=== PATIENT | male | born 1990 | race Two or more races ===

== ENCOUNTER 2024-08-18 16:03 | Inpatient (IN) | payer OTHER ==
[~2024-08-18] VITALS: Ht 175.3 cm; Wt 77.3 kg
[2024-08-18 18:11] LABS: BASOPHILS % (AUTO) 0.3 % (0.0-2.0); EOSINOPHILS % (AUTO) 1.6 % (1.0-6.0); HEMATOCRIT 45.5 % (41-53); HEMOGLOBIN 15.3 g/dL (13.5-17.5); LYMPHOCYTES # (AUTO) 1.7 K/uL (1.0-4.8); LYMPHOCYTES % (AUTO) 17.8 % (22.0-44.0); MEAN CORPUSCULAR HEMOGLOBIN 29.9 pg (26.0-34.0); MEAN CORPUSCULAR HGB CONC 33.5 G/dL (31.0-37.0); MEAN CORPUSCULAR VOLUME 89 fL (80-100); MONOCYTES # (AUTO) 1.3 K/uL (0.1-1.0); MONOCYTES % (AUTO) 13.6 % (2.0-9.0); NEUTROPHILS # (AUTO) 6.4 K/uL (1.8-7.7); NEUTROPHILS % (AUTO) 66.7 % (40.0-70.0); PLATELET COUNT (AUTO) 228 K/uL (150-450); RED CELL DISTRIBUTION WIDTH 12.9 % (11.5-14.5); WHITE BLOOD COUNT (AUTO) 9.6 K/uL (4.5-11.0)
[2024-08-18 18:21] LABS: ANION GAP 4 mmol/L (8-16); CARBON DIOXIDE 31 mmol/L (22-29); CHLORIDE 100 mmol/L (98-107); CREATININE 1.11 mg/dL (0.60-1.30); GLOMERULAR FILTR. RATE CALC > 60 mL/min (>60); GLUCOSE,RANDOM 103 mg/dL (70-110); POTASSIUM 4.4 mmol/L (3.5-5.1); SODIUM SERUM 135 mmol/L (136-145); UREA NITROGEN, BLOOD 13 mg/dL (7-18)
[2024-08-18 18:31] LABS: TROPONIN I-HIGH SENSITIVITY 5 ng/L (<76)
[2024-08-18 19:26] LABS: COVID AG,FIA SOURCE NASAL SWAB
[2024-08-18 19:46] LABS: INFLUENZA TYPE A NEGATIVE FOR TYPE A (NEGATIVE); INFLUENZA TYPE B NEGATIVE FOR TYPE B (NEGATIVE); SARS-COV2 (COVID) ANTIGEN,FIA Negative (Negative)
[2024-08-18] MEDS ORDERED: SODIUM CHLORIDE 0.9% 100 ML ONE (21:08)
[2024-08-18] MEDS ORDERED: IOHEXOL 350 MG/ML 100 ML VIAL ONE (21:08)
[2024-08-18] MEDS ORDERED: ZOLPIDEM TARTRATE 5 MG TABLET PO PRN (22:30)
[2024-08-18] MEDS ORDERED: MAGNESIUM HYDROXIDE SUSPENSION 30 ML UDCUP PO PRN (22:30)
[2024-08-18] MEDS ORDERED: ACETAMINOPHEN 325 MG TABLET PO PRN (22:30)
[2024-08-19] VITALS (7 sets, daily range): BP systolic 116–127; BP diastolic 78–88; PULSE 18–88; RESP 18–20; TEMP 97.9–98.2; O2SAT 97–100
[2024-08-19] MEDS: CefTRIAXone 1 GM/DEXTROSE 50 ML IV ONE (01:28)
[2024-08-19] MEDS: AZITHROMYCIN 500 MG/NS 250 ML IV ONE (01:29)
[2024-08-19 08:06] LABS: MTB PCR w/Rif. Resistance-SPUT NOT DETECTED (Not Detectd)
[2024-08-19 10:12] LABS: APPEARANCE,URINE CLEAR (CLEAR); BILIRUBIN,URINE NEGATIVE (NEGATIVE); COLOR,URINE LIGHT YELLOW (YELLOW); GLUCOSE, URINE (UA) NEGATIVE (NEGATIVE); KETONES,URINE NEGATIVE (NEGATIVE); LEUKOCYTE ESTERASE ,URINE NEGATIVE (NEGATIVE); NITRATE,URINE NEGATIVE (NEGATIVE); OCCULT BLOOD,URINE NEGATIVE (NEGATIVE); PROTEIN,URINE NEGATIVE (NEGATIVE); UROBILINOGEN,URINE <=1.0 mg/dL (<=1.0)
[2024-08-19] MEDS ORDERED: SODIUM CHLORIDE 3% 15 ML NEB SOLUTION NEB ONE ×2 (11:32→19:43)
[2024-08-19 23:20] LABS: MTB PCR w/Rif. Resistance-SPUT NOT DETECTED (Not Detectd)
[2024-08-20] MEDS ORDERED: SODIUM CHLORIDE 3% 15 ML NEB SOLUTION NEB ONE (03:38)
[2024-08-20 05:14] VITALS: BP 119/88; PULSE 65; RESP 17; TEMP 97.7; O2SAT 99
[2024-08-20 08:36] VITALS: BP 126/82; PULSE 79; RESP 20; TEMP 97.7; O2SAT 100
[2024-08-20] MEDS ORDERED: OxyCODONE HCL/ACETAMINOPHEN 5-325 MG TABLET PO PRN (15:15)
[2024-08-20] MEDS ORDERED: ZOLPIDEM TARTRATE 5 MG TABLET PO PRN (15:15)
[2024-08-20] MEDS ORDERED: BISACODYL 10 MG RECTAL RECTAL SUPPOSITORY PR PRN (15:15)
[2024-08-20] MEDS ORDERED: MORPHINE SULFATE 2 MG/ML SYRINGE IVP PRN (15:15)
[2024-08-20] MEDS ORDERED: ALBUTEROL SULFATE 2.5 MG/0.5 ML NEB SOLUTION NEB PRN (15:15)
[2024-08-20] MEDS ORDERED: MAGNESIUM HYDROXIDE SUSPENSION 30 ML UDCUP PO PRN (15:15)
[2024-08-20] MEDS ORDERED: ACETAMINOPHEN 325 MG TABLET PO PRN (15:15)
[2024-08-20] MEDS ORDERED: IPRATROPIUM BROMIDE 0.5 MG/2.5 ML NEB SOLUTION NEB PRN (15:15)
[2024-08-20] MEDS: CefTRIAXone 1 GM/DEXTROSE 50 ML IV SCH (16:28)
[2024-08-20] MEDS: HEPARIN SODIUM,PORCINE 5,000 UNITS/ML VIAL SQ SCH (16:28)
[2024-08-20] MEDS ORDERED: SODIUM CHLORIDE 0.9% 1,000 ML ONE (16:38)
[2024-08-20] MEDS: AZITHROMYCIN 500 MG/NS 250 ML IV SCH (17:39)
[2024-08-20 19:31] VITALS: BP 123/82; PULSE 64; RESP 18; TEMP 98.2; O2SAT 99
[2024-08-21 04:43] VITALS: BP 121/73; PULSE 55; RESP 18; TEMP 97.5; O2SAT 97
[2024-08-21] MEDS: PANTOPRAZOLE SODIUM 40 MG/VIAL IVP SCH (08:10)
[2024-08-21 08:38] VITALS: BP 117/86; PULSE 74; RESP 18; TEMP 97.5; O2SAT 100
[2024-08-21 19:36] VITALS: BP 120/69; PULSE 69; RESP 20; TEMP 97.5; O2SAT 100
[2024-08-22 04:39] VITALS: BP 114/78; PULSE 55; RESP 18; TEMP 97.9; O2SAT 100
[2024-08-22 07:53] VITALS: BP 115/77; PULSE 62; RESP 18; TEMP 97.9; O2SAT 100
[2024-08-22 16:00] VITALS: BP 118/78; PULSE 60; RESP 18; TEMP 97.8; O2SAT 99
[2024-08-22 20:01] VITALS: BP 120/83; PULSE 65; RESP 18; TEMP 97.7; O2SAT 99
[2024-08-22 20:09] VITALS: BP 125/85; PULSE 68; RESP 18; TEMP 98.4; O2SAT 99
[2024-08-23 03:07] LABS: QUANTIFERON+, Nil Value 0.12 IU/mL; QUANTIFERON+,Mitogen Value 7.87 IU/mL; QUANTIFERON+,TB1 Antigen Value 0.14 IU/mL; QUANTIFERON+,TB2 Antigen Value 0.13 IU/mL; QUANTIFERON, TB GOLD PLUS Negative (Negative)
[2024-08-23 05:02] VITALS: BP 114/75; PULSE 64; RESP 18; TEMP 97.5; O2SAT 99
[2024-08-23 08:08] VITALS: BP 117/80; PULSE 73; RESP 18; TEMP 97.7; O2SAT 100
[2024-08-23 20:49] VITALS: BP 115/73; PULSE 56; RESP 20; TEMP 98.2; O2SAT 98
[2024-08-24 04:53] VITALS: BP 117/73; PULSE 59; RESP 18; TEMP 98.1; O2SAT 100
[2024-08-24 08:01] VITALS: BP 115/75; PULSE 65; RESP 19; TEMP 97.7; O2SAT 100
[2024-08-24 20:25] VITALS: BP 108/63; PULSE 55; RESP 20; TEMP 98.4; O2SAT 98
[2024-08-25 04:58] VITALS: BP 116/84; PULSE 71; RESP 18; TEMP 98.4; O2SAT 97
[2024-08-25 07:33] VITALS: BP 116/74; PULSE 72; RESP 19; TEMP 97; O2SAT 100
[2024-08-25] MEDS ORDERED: PYRAZINAMIDE 500 MG TABLET PO ONE (11:45)
[2024-08-25] MEDS: PYRAZINAMIDE 500 MG TABLET PO ONE (14:37)
[2024-08-25] MEDS: rifAMPin 300 MG CAPSULE PO ONE (14:38)
[2024-08-25] MEDS: ISONIAZID 300 MG TABLET PO ONE (14:38)
[2024-08-25] MEDS: ETHAMBUTOL HCL 400 MG TABLET PO ONE (14:38)
[2024-08-25 19:53] LABS: BASOPHILS % (AUTO) 0.6 % (0.0-2.0); EOSINOPHILS % (AUTO) 2.1 % (1.0-6.0); HEMATOCRIT 42.7 % (41-53); HEMOGLOBIN 14.6 g/dL (13.5-17.5); LYMPHOCYTES % (AUTO) 27.2 % (22.0-44.0); MEAN CORPUSCULAR HEMOGLOBIN 29.8 pg (26.0-34.0); MEAN CORPUSCULAR HGB CONC 34.1 G/dL (31.0-37.0); MEAN CORPUSCULAR VOLUME 87 fL (80-100); MONOCYTES # (AUTO) 0.7 K/uL (0.1-1.0); MONOCYTES % (AUTO) 9.5 % (2.0-9.0); NEUTROPHILS # (AUTO) 4.6 K/uL (1.8-7.7); NEUTROPHILS % (AUTO) 60.6 % (40.0-70.0); PLATELET COUNT (AUTO) 313 K/uL (150-450); RED BLOOD CELL COUNT(AUTO) 4.89 MIL/uL (4.50-5.90); RED CELL DISTRIBUTION WIDTH 12.8 % (11.5-14.5); WHITE BLOOD COUNT (AUTO) 7.5 K/uL (4.5-11.0)
[2024-08-25 19:55] VITALS: BP 131/84; PULSE 65; RESP 18; TEMP 97.5; O2SAT 98
[2024-08-25 20:01] LABS: ANION GAP 2 mmol/L (8-16); CALCIUM, TOTAL 8.7 mg/dL (8.8-10.5); CARBON DIOXIDE 32 mmol/L (22-29); CHLORIDE 104 mmol/L (98-107); CREATININE 1.22 mg/dL (0.60-1.30); GLOMERULAR FILTR. RATE CALC > 60 mL/min (>60); GLUCOSE,RANDOM 123 mg/dL (70-110); POTASSIUM 4.3 mmol/L (3.5-5.1); SODIUM SERUM 138 mmol/L (136-145); UREA NITROGEN, BLOOD 19 mg/dL (7-18)
[2024-08-25 20:06] LABS: ALANINE AMINOTRANSFERASE 42 U/L (12-78); ALBUMIN 3.6 g/dL (3.4-5.0); ALKALINE PHOSPHATASE 101 U/L (46-116); ASPARTATE AMINOTRANSFERASE 23 U/L (15-37); BILIRUBIN,TOTAL 0.5 mg/dL (0.1-1.0); TOTAL PROTEIN, SERUM 7.2 g/dL (6.4-8.2)
[2024-08-26 04:30] VITALS: BP 132/79; PULSE 68; RESP 18; TEMP 97.9; O2SAT 99
[2024-08-26 07:21] LABS: BASOPHILS % (AUTO) 0.9 % (0.0-2.0); EOSINOPHILS % (AUTO) 2.2 % (1.0-6.0); HEMATOCRIT 44.5 % (41-53); HEMOGLOBIN 15.3 g/dL (13.5-17.5); LYMPHOCYTES # (AUTO) 1.8 K/uL (1.0-4.8); LYMPHOCYTES % (AUTO) 23.3 % (22.0-44.0); MEAN CORPUSCULAR HEMOGLOBIN 30.2 pg (26.0-34.0); MEAN CORPUSCULAR HGB CONC 34.5 G/dL (31.0-37.0); MEAN CORPUSCULAR VOLUME 88 fL (80-100); MONOCYTES # (AUTO) 0.8 K/uL (0.1-1.0); MONOCYTES % (AUTO) 9.6 % (2.0-9.0); PLATELET COUNT (AUTO) 306 K/uL (150-450); RED BLOOD CELL COUNT(AUTO) 5.08 MIL/uL (4.50-5.90); WHITE BLOOD COUNT (AUTO) 7.9 K/uL (4.5-11.0)
[2024-08-26 07:38] LABS: ALANINE AMINOTRANSFERASE 40 U/L (12-78); ALBUMIN 3.9 g/dL (3.4-5.0); ALKALINE PHOSPHATASE 101 U/L (46-116); ANION GAP 3 mmol/L (8-16); ASPARTATE AMINOTRANSFERASE 19 U/L (15-37); CALCIUM, TOTAL 9.4 mg/dL (8.8-10.5); CARBON DIOXIDE 33 mmol/L (22-29); CHLORIDE 104 mmol/L (98-107); CREATININE 1.11 mg/dL (0.60-1.30); GLOMERULAR FILTR. RATE CALC > 60 mL/min (>60); GLUCOSE,RANDOM 89 mg/dL (70-110); POTASSIUM 4.5 mmol/L (3.5-5.1); SODIUM SERUM 140 mmol/L (136-145); TOTAL PROTEIN, SERUM 7.5 g/dL (6.4-8.2); UREA NITROGEN, BLOOD 17 mg/dL (7-18)
[2024-08-26 07:56] VITALS: BP 132/87; PULSE 72; RESP 20; TEMP 98.2; O2SAT 100
[2024-08-26] MEDS: ISONIAZID 300 MG TABLET PO SCH (08:51)
[2024-08-26] MEDS: PYRAZINAMIDE 500 MG TABLET PO SCH (08:52)
[2024-08-26] MEDS: rifAMPin 300 MG CAPSULE PO SCH (08:52)
[2024-08-26] MEDS: ETHAMBUTOL HCL 400 MG TABLET PO SCH (08:52)
[2024-08-26] MEDS ORDERED: PYRAZINAMIDE 500 MG TABLET PO SCH (09:00)
[2024-08-26 19:58] VITALS: BP 121/73; PULSE 64; RESP 18; TEMP 98.1; O2SAT 100
[2024-08-27 07:51] VITALS: BP 110/76; PULSE 75; RESP 19; TEMP 97.5; O2SAT 99
[2024-08-27 20:53] VITALS: BP 123/78; PULSE 72; RESP 20; TEMP 98.2; O2SAT 98
[2024-08-28 05:24] VITALS: BP 117/77; PULSE 78; RESP 18; TEMP 98.2; O2SAT 98
[2024-08-28 08:11] VITALS: BP 115/83; PULSE 75; RESP 18; TEMP 98.1; O2SAT 97
[2024-08-28] MEDS ORDERED: ACET-2247 PO (10:17)
== END 2024-08-28 21:36 | DRG 178 ==
LOC: EMS 16:03 → EDH 22:21 → 6S 08-19 02:00
PROVIDERS: ADMIT Internal Medicine; ATTEND Internal Medicine
DX: J15.69 Pneumonia due to other Gram-negative bacteria (principal); E87.1 Hypo-osmolality and hyponatremia; Z20.822 Contact with and (suspected) exposure to COVID-19; A15.0 Tuberculosis of lung
CPT/HCPCS: 71046; 71250; 71260; 80048; 80053; 81003; 83880; 84484; 85025; 85379; 86480; 87015; 87040; 87206; 87389; 87556; 87804; 93005; 94640; 99285; G0378; J0456; J0696; J1644; J2470; J7030; J7050; 36415-L1; 36415-TC